=== PATIENT | male | born 1990 | race Native Hawaiian/Other Pacific Islander ===

== ENCOUNTER 2017-02-04 21:32 | Emergency (ER) | payer OTHER ==
[2017-02-04 21:39] VITALS: RESP 20; O2SAT 98
[2017-02-04 22:19] LABS: URINE BILIRUBIN NEGATIVE (NEGATIVE); URINE BLOOD NEGATIVE (NEGATIVE); URINE COLOR Colorless (YELLOW); URINE GLUCOSE (UA) NORMAL (Normal); URINE KETONE NEGATIVE (NEGATIVE); URINE LEUKOCYTE ESTERASE NEG Leu/uL (Negative); URINE PROTEIN NEGATIVE (NEGATIVE); URINE UROBILINOGEN NORMAL mg/dL (0.2-1.0)
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
[2017-02-04] MEDS ORDERED: Naproxen 550 mg Tab PO STA (23:06)
[2017-02-04] MEDS ORDERED: Naproxen 550 mg Tab PO ONE (23:13)
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
[2017-02-04 23:45] VITALS: BP 124/85; PULSE 64; TEMP 97.4
--- NOTE | 2017-02-05 20:22 | CARD ---
APPROVED REPORT EKG Measurement Heart [id number] <Conclusion> Normal sinus rhythm with sinus arrhythmia Normal ECG
== END 2017-02-04 23:40 | disposition home or self-care (01) ==
LOC: C.ER 21:32
DX: S09.90XA Unspecified injury of head, initial encounter (principal); V89.2XXA Person injured in unspecified motor-vehicle accident, traffic, initial encounter
CPT/HCPCS: 70450; 81001; 93005; 99285; G0480